=== PATIENT | female | born 1960 | race American Indian/Alaskan Native ===

== ENCOUNTER 2016-11-10 10:43 | Emergency (ER) | payer OTHER, MEDICARE ==
[2016-11-10 11:33] VITALS: BP 153/72
== END 2016-11-10 12:25 | disposition left against medical advice (07) ==
LOC: ED 10:43
DX: Z04.1 Encounter for examination and observation following transport accident (principal); V89.2XXA Person injured in unspecified motor-vehicle accident, traffic, initial encounter; Y93.89 Activity, other specified; Y92.89 Other specified places as the place of occurrence of the external cause; Y99.8 Other external cause status; Z53.21 Procedure and treatment not carried out due to patient leaving prior to being seen by health care provider

== ENCOUNTER 2019-05-13 18:37 | Emergency (ER) | payer MEDICARE ==
[2019-05-13 18:52] VITALS: BP 169/93
[2019-05-13] MEDS ORDERED: FUL-GLO OP STA (18:52)
--- NOTE | 2019-05-13 18:57 | Emergency Department Report ---
Blank Doc - Documentation Documentation: 58 y/o c/o left eye redness and pain to periorbital region . possible early ve sicular rash evolving This initial assessment/diagnostic orders/clinical plan/treatment(s) is/are subject to change based on patient's health status, clinical progression and re- assessment by fellow clinical providers in the ED. Further treatment and workup at subsequent clinical providers discretion. Patient/guardians urged not to elope from the ED as their condition may be serious if not clinically assessed and managed. Initial orders include: visual acuity vlilareal lamp fundus exam
[2019-05-13] MEDS ORDERED: TETRACAINE 0.5% OU ONE (20:23)
[2019-05-13] MEDS ORDERED: TETRACAINE 0.5% ONE (20:24)
--- NOTE | 2019-05-13 20:43 | Emergency Department Report ---
ED Eye Problem HPI - General Chief complaint: Eye Problems Stated complaint: LFT EYE INFECTED/PAIN Time Seen by Provider: 05/13/19 18:50 Source: patient Mode of arrival: Ambulatory Limitations: No Limitations - History of Present Illness Initial comments: 58-year-old female, hx of CVA, with left eye pain, redness, tearing, blurred vision 2 days. Patient reports itching as well, reports she has been rubbing her eye. Patient states this morning when she awoke, her left eye was swollen. States the swelling has resolved since using ice packs on her eye. Patient denies any trauma to the eye. Patient also has associated redness and a few bumps below her eye. MD chief complaint: eye pain, eye redness -: days(s) (2) Location: left eye Eye Symptoms: burning, redness, pain, itching, discharge, blurry vision, photophobia Severity: moderate If Pain, Quality: burning Consistency: constant Associated Symptoms: none - Related Data Home Medications Medication Instructions Recorded Confirmed Last Taken Citalopram [Celexa] 20 mg PO DAILY 09/01/15 04/10/16 04/10/16 20 mg Simvastatin (Nf) [Zocor TAB] 20 mg PO QHS 09/01/15 04/10/16 04/10/16 20 mg Amlodipine Besylate 5 mg PO DAILY 04/10/16 04/10/16 04/10/16 5 mg Atenolol/Chlorthalidone 1 tab PO DAILY 04/10/16 04/10/16 04/10/16 [Atenolol-Chlorthalidone 50-25] 1 tab Lisinopril [Zestril] 40 mg PO DAILY 04/10/16 04/10/16 04/10/16 40 mg Meloxicam 7.5 mg PO BID 04/10/16 04/10/16 04/10/16 7.5mg metroNIDAZOLE 500 mg PO BID 04/10/16 04/10/16 04/10/16 500 mg Previous Rx's Medication Instructions Recorded Last Taken Type Erythromycin [Erythromycin Ophth 10 applic OS 6XD 7 Days #1 tube 05/13/19 Unknown Rx Oint] Valacyclovir HCl [Valtrex] 1,000 mg PO Q8HR 7 Days #21 tablet 05/13/19 Unknown Rx Allergies Allergy/AdvReac Type Severity Reaction Status Date / Time No Known Allergies Allergy Verified 04/10/16 06:13 ED Review of Systems ROS: Stated complaint: LFT EYE INFECTED/PAIN Other details as noted in HPI Comment: All other systems reviewed and negative Constitutional: denies: chills, fever Eyes: eye pain, eye discharge, vision change ED Past Medical Hx - Past Medical History Previous Medical History?: Yes Hx Hypertension: Yes Hx CVA: Yes (slurred speech and right sided deficit.) Hx Diabetes: Yes (diet controlled) - Surgical History Past Surgical History?: No - Social History Smoking Status: Current Every Day Smoker Substance Use Type: None - Medications Home Medications: Home Medications Medication Instructions Recorded Confirmed Last Taken Type Citalopram [Celexa] 20 mg PO DAILY 09/01/15 04/10/16 04/10/16 History 20 mg Simvastatin (Nf) [Zocor TAB] 20 mg PO QHS 09/01/15 04/10/16 04/10/16 History 20 mg Amlodipine Besylate 5 mg PO DAILY 04/10/16 04/10/16 04/10/16 History 5 mg Atenolol/Chlorthalidone 1 tab PO DAILY 04/10/16 04/10/16 04/10/16 History [Atenolol-Chlorthalidone 50-25] 1 tab Lisinopril [Zestril] 40 mg PO DAILY 04/10/16 04/10/16 04/10/16 History 40 mg Meloxicam 7.5 mg PO BID 04/10/16 04/10/16 04/10/16 History 7.5mg metroNIDAZOLE 500 mg PO BID 04/10/16 04/10/16 04/10/16 History 500 mg Erythromycin [Erythromycin Ophth 10 applic OS 6XD 7 Days #1 tube 05/13/19 Unknown Rx Oint] Valacyclovir HCl [Valtrex] 1,000 mg PO Q8HR 7 Days #21 tablet 05/13/19 Unknown Rx ED Physical Exam - General Limitations: No Limitations General appearance: alert, in no apparent distress - Head Head exam: Present: atraumatic, normocephalic - Eye Eye exam: Present: PERRL, EOMI, conjunctival injection (left eye), other (erythema and a few papular lesions inferior to left eye; no skin changes on forehead or lateral to the eye; no ulcerations or dendritic lesions on Hernandez lamp exam). Absent: periorbital swelling Pupils: Present: normal accommodation - ENT ENT exam: Present: mucous membranes moist - Neck Neck exam: Present: normal inspection - Respiratory Respiratory exam: Present: normal lung sounds bilaterally. Absent: respiratory distress - Cardiovascular Cardiovascular Exam: Present: regular rate, normal rhythm - GI/Abdominal GI/Abdominal exam: Absent: distended - Extremities Exam Extremities exam: Present: normal inspection - Neurological Exam Neurological exam: Present: alert, oriented X3 - Psychiatric Psychiatric exam: Present: normal affect, normal mood - Skin Skin exam: Present: warm, dry, intact ED Course Vital Signs 05/13/19 18:48 Temperature 98.2 F Pulse Rate 70 Respiratory 18 Rate Blood Pressure 169/93 O2 Sat by Pulse 97 Oximetry ED Medical Decision Making - Medical Decision Making Possibly very early shingles. Pt given valtrex. Advised ophthamology f/u. - Differential Diagnosis conjunctivitis, herpes zoster ophthalmicus Critical care attestation.: If time is entered above; I have spent that time in minutes in the direct care of this critically ill patient, excluding procedure time. ED Disposition Clinical Impression: Conjunctivitis, Herpes zoster Disposition: DC-01 TO HOME OR SELFCARE Is pt being admited?: No Condition: Stable Instructions: Conjunctivitis (ED), Herpes Zoster (ED) Prescriptions: Erythromycin [Erythromycin Ophth Oint] 10 applic OS 6XD 7 Days #1 tube Valacyclovir HCl [Valtrex] 1,000 mg PO Q8HR 7 Days #21 tablet Referrals: PRIMARY CAREMD [Primary Care Provider] - 3-5 Days TREE LUJAN MD [Staff Physician] - [place] Time of Disposition: 20:50
== END 2019-05-13 20:57 | disposition home or self-care (01) ==
LOC: ED 18:37
DX: H10.32 Unspecified acute conjunctivitis, left eye (principal); B02.9 Zoster without complications; I10 Essential (primary) hypertension; E11.9 Type 2 diabetes mellitus without complications; F17.200 Nicotine dependence, unspecified, uncomplicated; Z86.73 Personal history of transient ischemic attack (TIA), and cerebral infarction without residual deficits; Z79.899 Other long term (current) drug therapy
CPT/HCPCS: 99283

== ENCOUNTER 2021-04-23 01:34 | Inpatient (IN) | payer MEDICARE ==
--- NOTE | 2021-04-23 02:06 | Emergency Department Report ---
ED Chest Pain HPI - General Chief Complaint: Dyspnea/Respdistress Stated Complaint: DIFFICULTY BREATHING Time Seen by Provider: 04/23/21 01:53 Source: EMS Mode of arrival: Stretcher Limitations: No Limitations - History of Present Illness Initial Comments: 60-year-old -[place] female presents to the emergency department from home with complaint of a 1 day history of generalized chest discomfort, shortness of breath, wheezing. Patient received a albuterol breathing treatment and a shot of Solu-Medrol in route with some improvement in the shortness of breath, but no improvement in the chest discomfort. Currently she says it is 6 out of 10 in intensity. She has a past medical history of hypertension and previous CVA with some residual right-sided weakness and difficulty with speech. No recent travel or sick contacts at home. She is vaccinated against COVID-19. The patient is a tobacco smoker but denies any illicit drug use. - Related Data Home Medications Medication Instructions Recorded Confirmed Last Taken Citalopram [Celexa] 20 mg PO DAILY 09/01/15 04/10/16 04/10/16 20 mg Simvastatin (Nf) [Zocor TAB] 20 mg PO QHS 09/01/15 04/10/16 04/10/16 20 mg Amlodipine Besylate 5 mg PO DAILY 04/10/16 04/10/16 04/10/16 5 mg Atenolol/Chlorthalidone 1 tab PO DAILY 04/10/16 04/10/16 04/10/16 [Atenolol-Chlorthalidone 50-25] 1 tab Lisinopril [Zestril] 40 mg PO DAILY 04/10/16 04/10/16 04/10/16 40 mg Meloxicam 7.5 mg PO BID 04/10/16 04/10/16 04/10/16 7.5mg metroNIDAZOLE 500 mg PO BID 04/10/16 04/10/16 04/10/16 500 mg Previous Rx's Medication Instructions Recorded Last Taken Type Erythromycin [Erythromycin Ophth 10 applic OS 6XD 7 Days #1 tube 05/13/19 Unknown Rx Oint] Valacyclovir HCl [Valtrex] 1,000 mg PO Q8HR 7 Days #21 tablet 05/13/19 Unknown Rx Allergies Allergy/AdvReac Type Severity Reaction Status Date / Time No Known Allergies Allergy Verified 04/23/21 01:39 Heart Score - HEART Score History: Slightly suspicious EKG: Non-specific Age: 45-65 Risk factors: 1-2 risk factors Troponin: < normal limit HEART Score: 3 - EKG Read Time Time EKG Completed: 05:54 EKG Read Time: 05:54 - Critical Actions Critical Actions: 0-3 pts:0.9-1.7%risk of adverse cardiac event.Candidate for discharge ED Review of Systems ROS: Stated complaint: DIFFICULTY BREATHING Other details as noted in HPI Comment: All other systems reviewed and negative Constitutional: denies: chills, fever Eyes: denies: eye pain, vision change ENT: denies: ear pain, throat pain Respiratory: shortness of breath, wheezing Cardiovascular: chest pain. denies: edema Gastrointestinal: denies: abdominal pain, vomiting Genitourinary: denies: dysuria, discharge Musculoskeletal: denies: back pain, arthralgia Skin: denies: rash, lesions Neurological: denies: headache, weakness ED Past Medical Hx - Past Medical History Hx Hypertension: Yes Hx CVA: Yes (slurred speech and right sided deficit.) Hx Diabetes: Yes (diet controlled) - Social History Smoking Status: Current Every Day Smoker Substance Use Type: None - Medications Home Medications: Home Medications Medication Instructions Recorded Confirmed Last Taken Type Citalopram [Celexa] 20 mg PO DAILY 09/01/15 04/10/16 04/10/16 History 20 mg Simvastatin (Nf) [Zocor TAB] 20 mg PO QHS 09/01/15 04/10/16 04/10/16 History 20 mg Amlodipine Besylate 5 mg PO DAILY 04/10/16 04/10/16 04/10/16 History 5 mg Atenolol/Chlorthalidone 1 tab PO DAILY 04/10/16 04/10/16 04/10/16 History [Atenolol-Chlorthalidone 50-25] 1 tab Lisinopril [Zestril] 40 mg PO DAILY 04/10/16 04/10/16 04/10/16 History 40 mg Meloxicam 7.5 mg PO BID 04/10/16 04/10/16 04/10/16 History 7.5mg metroNIDAZOLE 500 mg PO BID 04/10/16 04/10/16 04/10/16 History 500 mg Erythromycin [Erythromycin Ophth 10 applic OS 6XD 7 Days #1 tube 05/13/19 Unknown Rx Oint] Valacyclovir HCl [Valtrex] 1,000 mg PO Q8HR 7 Days #21 tablet 05/13/19 Unknown Rx ED Physical Exam - General Limitations: No Limitations ED Course Vital Signs 04/23/21 04/23/21 01:40 05:29 Temperature 98.6 F Pulse Rate 94 H 78 Respiratory 18 Rate Blood Pressure 147/89 Blood Pressure 170/120 [Left] O2 Sat by Pulse 94 Oximetry ED Medical Decision Making - Lab Data Result diagrams: 04/23/21 02:36 04/23/21 02:36 Lab Results 04/23/21 04/23/21 04/23/21 Range/Units 02:36 02:36 02:36 WBC 5.8 (4.5-11.0) K/mm3 RBC 4.54 (3.65-5.03) M/mm3 Hgb 13.0 (10.1-14.3) gm/dl Hct 39.2 (30.3-42.9) % MCV 86 (79-97) fl MCH 29 (28-32) pg MCHC 33 (30-34) % RDW 14.4 (13.2-15.2) % Plt Count 167 (140-440) K/mm3 Lymph % (Auto) 19.8 (13.4-35.0) % [place] % (Auto) 7.9 H (0.0-7.3) % Eos % (Auto) 1.1 (0.0-4.3) % Baso % (Auto) 0.4 (0.0-1.8) % Lymph # (Auto) 1.1 L (1.2-5.4) K/mm3 [place] # (Auto) 0.5 (0.0-0.8) K/mm3 Eos # (Auto) 0.1 (0.0-0.4) K/mm3 Baso # (Auto) 0.0 (0.0-0.1) K/mm3 Seg Neutrophils % 70.8 H (40.0-70.0) % Seg Neutrophils # 4.1 (1.8-7.7) K/mm3 D-Dimer 536.21 H (0-234) ng/mlDDU Sodium 143 (137-145) mmol/L Potassium 3.6 (3.6-5.0) mmol/L Chloride 106.5 (98-107) mmol/L Carbon Dioxide 20 L (22-30) mmol/L Anion Gap 20 mmol/L BUN 12 (7-17) mg/dL Creatinine 0.7 (0.6-1.2) mg/dL Estimated GFR > 60 ml/min BUN/Creatinine Ratio 17 % Glucose 168 H (65-100) mg/dL Calcium 9.8 (8.4-10.2) mg/dL Troponin T < 0.010 (0.00-0.029) ng/mL NT-Pro-B Natriuret Pep (0-900) pg/mL 04/23/21 Range/Units 02:36 WBC (4.5-11.0) K/mm3 RBC (3.65-5.03) M/mm3 Hgb (10.1-14.3) gm/dl Hct (30.3-42.9) % MCV (79-97) fl MCH (28-32) pg MCHC (30-34) % RDW (13.2-15.2) % Plt Count (140-440) K/mm3 Lymph % (Auto) (13.4-35.0) % [place] % (Auto) (0.0-7.3) % Eos % (Auto) (0.0-4.3) % Baso % (Auto) (0.0-1.8) % Lymph # (Auto) (1.2-5.4) K/mm3 [place] # (Auto) (0.0-0.8) K/mm3 Eos # (Auto) (0.0-0.4) K/mm3 Baso # (Auto) (0.0-0.1) K/mm3 Seg Neutrophils % (40.0-70.0) % Seg Neutrophils # (1.8-7.7) K/mm3 D-Dimer (0-234) ng/mlDDU Sodium (137-145) mmol/L Potassium (3.6-5.0) mmol/L Chloride (98-107) mmol/L Carbon Dioxide (22-30) mmol/L Anion Gap mmol/L BUN (7-17) mg/dL Creatinine (0.6-1.2) mg/dL Estimated GFR ml/min BUN/Creatinine Ratio % Glucose (65-100) mg/dL Calcium (8.4-10.2) mg/dL Troponin T (0.00-0.029) ng/mL NT-Pro-B Natriuret Pep 4015 H (0-900) pg/mL - EKG Data -: EKG Interpreted by Me EKG shows normal: sinus rhythm, axis, intervals, QRS complexes (LVH), ST-T waves (Lateral T wave inversion) Rate: normal - EKG Data Interpretation: unchanged when compared t (04/11/16) - Radiology Data Radiology results: report reviewed CHEST 1 VIEW INDICATION / CLINICAL INFORMATION: CP, SOB. FINDINGS: SUPPORT DEVICES: None. HEART / MEDIASTINUM: No significant abnormality. LUNGS / PLEURA: Mild interstitial edema. Tiny pleural effusions. CTA CHEST WITH IV CONTRAST INDICATION: Pt complains of chest pain with dyspnea, elevated D-dimer. TECHNIQUE: Axial CT images were obtained through the chest after injection of 100 mL Omnipaque 300 IV contrast. 3 plane MIP reconstructions were produced. All CT scans at this location are performed using CT dose reduction for ALARA by means of automated exposure control. COMPARISON: None available. FINDINGS: PULMONARY ARTERIES: No pulmonary emboli. AORTA AND ARTERIES: No acute abnormality. MEDIASTINUM: Mild peribronchial thickening identified along both sunil. No mediastinal adenopathy. Heart size is borderline enlarged. LUNGS: Increased interstitial prominence with some ill-defined grou ndglass densities within the right middle lobe and both upper lobes. ADDITIONAL FINDINGS: None. UPPER ABDOMEN: No acute findings. BONES: No significant osseous abnormality. IMPRESSION: 1. No CT evidence for pulmonary embolism. 2. Increased interstitial prominence with patchy groundglass densities and perihilar fullness suggestive of early interstitial edema - Medical Decision Making This patient presents to the emergency department with a complaint of shortness of breath, generalized chest discomfort and apparently some wheezing. I have some mildly coarse breath sounds, but otherwise the patient does not appear in any respiratory or acute distress. Chest x-ray shows some mild pleural effusions and some mild interstitial edema. No pneumonia, pneumothorax, widened mediastinum. EKG did not have any morphology consistent with ST elevation myocardial infarc tion. Patient's labs are remarkable for an elevated D-dimer level of about 550 and a very elevated proBNP of about 4000. With the shortness of breath, chest discomfort, chest x-ray findings, and demetri vated proBNP, I feel that the patient is exhibiting signs of congestive heart failure. Her cardiac catheterization from 5 years ago showed some slightly decreased ejection fraction, but the patient says that she was never diagnosed with CHF. Therefore this may be new onset CHF. CT angiography of the chest did not show pulmonary embolism, dissection, or any acute process. Patient was given a full dose aspirin and she was given a dose of Lasix to start diuresis. She will be admitted to the hospital for further evaluation and treatment and was accepted for admission by the hospitalist, Dr. Escobar. Critical Care Time: No Critical care attestation.: If time is entered above; I have spent that time in minutes in the direct care of this critically ill patient, excluding procedure time. ED Disposition Clinical Impression: New onset of congestive heart failure, Hypertensive urgency Dyspnea Qualifiers: Dyspnea type: shortness of breath Qualified Code(s): R06.02 - Shortness of breath; R06.00 - Dyspnea, unspecified; R06.01 - Orthopnea Chest pain Qualifiers: Chest pain type: unspecified Qualified Code(s): R07.9 - Chest pain, unspecified Disposition: ADMITTED INPATIENT Is pt being admited?: Yes Condition: Fair Time of Disposition: 05:23
--- NOTE | 2021-04-23 02:59 | XRay Report ---
CHEST 1 VIEW INDICATION / CLINICAL INFORMATION: CP, SOB. FINDINGS: SUPPORT DEVICES: None. HEART / MEDIASTINUM: No significant abnormality. LUNGS / PLEURA: Mild interstitial edema. Tiny pleural effusions. Signer Name: Siddharth Desai MD Signed: 04/23/2021 2:54 AM Workstation Name: [id number]
[2021-04-23 03:21] LABS: Basophils % (Auto) 0.4 % (0.0-1.8); Eosinophils # (Auto) 0.1 K/mm3 (0.0-0.4); Eosinophils % (Auto) 1.1 % (0.0-4.3); Hematocrit 39.2 % (30.3-42.9); Lymphocytes # (Auto) 1.1 K/mm3 (1.2-5.4); Lymphocytes % (Auto) 19.8 % (13.4-35.0); Mean Corpuscular HGB Conc 33 % (30-34); Mean Corpuscular Volume 86 fl (79-97); Monocytes # (Auto) 0.5 K/mm3 (0.0-0.8); Monocytes % (Auto) 7.9 % (0.0-7.3); Platelet Count 167 K/mm3 (140-440); Red Blood Count 4.54 M/mm3 (3.65-5.03); Red Cell Distribution Width 14.4 % (13.2-15.2)
[2021-04-23 03:48] LABS: Blood Urea Nitrogen 12 mg/dL (7-17); Calcium 9.8 mg/dL (8.4-10.2); Hemolysis Index 15
[2021-04-23 03:57] LABS: BUN/Creatinine Ratio 17
[2021-04-23] MEDS ORDERED: FUROSEMIDE 20 MG/2 ML INJ IV ONE (03:58)
[2021-04-23] MEDS ORDERED: ASPIRIN 81 MG TAB CHEW PO ONE (04:25)
[2021-04-23] MEDS ORDERED: METOPROLOL TARTRATE 5 MG/5 ML INJ IV ONE (05:19)
[2021-04-23] MEDS ORDERED: DEXTROSE 50% IN WATER (25GM) 50 ML SYRINGE IV PRN (05:32)
[2021-04-23] MEDS ORDERED: ACETAMINOPHEN 325 MG TAB PO PRN (05:32)
[2021-04-23] MEDS ORDERED: MORPHINE 2 MG/1 ML INJ IV PRN (05:32)
[2021-04-23] MEDS ORDERED: traMADol 50 MG TAB PO PRN (05:32)
[2021-04-23] MEDS ORDERED: NITROGLYCERIN 0.4 MG TAB SUBL SL PRN (05:32)
--- NOTE | 2021-04-23 05:46 | Cat Scan Report ---
CTA CHEST WITH IV CONTRAST INDICATION: Pt complains of chest pain with dyspnea, elevated D-dimer. TECHNIQUE: Axial CT images were obtained through the chest after injection of 100 mL Omnipaque 300 IV contrast. 3 plane MIP reconstructions were produced. All CT scans at this location are performed using CT dose reduction for ALARA by means of automated exposure control. COMPARISON: None available. FINDINGS: PULMONARY ARTERIES: No pulmonary emboli. AORTA AND ARTERIES: No acute abnormality. MEDIASTINUM: Mild peribronchial thickening identified along both sunil. No mediastinal adenopathy. Hea rt size is borderline enlarged. LUNGS: Increased interstitial prominence with some ill-defined groundglass densities within the right middle lobe and both upper lobes. ADDITIONAL FINDINGS: None. UPPER ABDOMEN: No acute findings. BONES: No significant osseous abnormality. IMPRESSION: 1. No CT evidence for pulmonary embolism. 2. Increased interstitial prominence with patchy groundglass densities and perihilar fullness suggest liz of early interstitial edema Signer Name: Siddharth Desai MD Signed: 04/23/2021 5:42 AM Workstation Name: [id number]
--- NOTE | 2021-04-23 05:48 | History and Physical Report ---
History of Present Illness Date of examination: 04/23/21 Date of admission: 04/23/21 Chief complaint: Chest pain Dyspnea History of present illness: 60 years old female with past medical history of CVA hypertension and controlled diabetes was brought to the emergency room because of generalized chest discomfort shortness of breath and wheezing for last 1 day Patient received a albuterol breathing treatment and a shot of Solu-Medrol in route with some improvement in the shortness of breath, but no improvement in the chest discomfort. Currently chest discomfort is 6 out of 10 in intensity. No recent travel or sick contacts at home. She is vaccinated against COVID- 19. The patient is a tobacco smoker but denies any illicit drug use. In the ER patient blood pressure is 170/120, also patient proBNP is 4015, troponin is 0.010. Chest x-ray shows mild CHF. Patient also has elevated D- dimer of 536.1 patient had a CTA of the chest result is pending. We are going to admit the patient with CHF exacerbation chest pain and hypertensive urgency Med rec is done. Past History Past Medical History: diabetes, hyperthyroidism, stroke Medications and Allergies Allergies Allergy/AdvReac Type Severity Reaction Status Date / Time No Known Allergies Allergy Verified 04/23/21 01:39 Home Medications Medication Instructions Recorded Confirmed Last Taken Type Citalopram [Celexa] 20 mg PO DAILY 09/01/15 04/10/16 04/10/16 History 20 mg Simvastatin (Nf) [Zocor TAB] 20 mg PO QHS 09/01/15 04/10/16 04/10/16 History 20 mg Amlodipine Besylate 5 mg PO DAILY 04/10/16 04/10/16 04/10/16 History 5 mg Atenolol/Chlorthalidone 1 tab PO DAILY 04/10/16 04/10/16 04/10/16 History [Atenolol-Chlorthalidone 50-25] 1 tab Lisinopril [Zestril] 40 mg PO DAILY 04/10/16 04/10/16 04/10/16 History 40 mg Meloxicam 7.5 mg PO BID 04/10/16 04/10/16 04/10/16 History 7.5mg metroNIDAZOLE 500 mg PO BID 04/10/16 04/10/16 04/10/16 History 500 mg Erythromycin [Erythromycin Ophth 10 applic OS 6XD 7 Days #1 tube 05/13/19 Unknown Rx Oint] Valacyclovir HCl [Valtrex] 1,000 mg PO Q8HR 7 Days #21 tablet 05/13/19 Unknown Rx Active Meds: Active Medications Acetaminophen (Acetaminophen 325 Mg Tab) 650 mg PO Q6H PRN PRN Reason: Pain, Mild (1-3) Amlodipine Besylate (Amlodipine 5 Mg Tab) 5 mg PO DAILY [facility] Aspirin (Aspirin 81 Mg Tab Chew) 81 mg PO QDAY [facility] Atorvastatin Calcium (Atorvastatin 40 Mg Tab) 40 mg PO QHS [facility] Citalopram Hydrobromide (Citalopram 20 Mg Tab) 20 mg PO DAILY [facility] Dextrose (Dextrose 50% In Water (25gm) 50 Ml Syringe) 50 ml IV Q30MIN PRN; Protocol PRN Reason: Hypoglycemia Erythromycin (Erythromycin 5 Mg/1 Gm Ophth Oint) 10 applic OS 6XD [facility] Furosemide (Furosemide 40 Mg/4 Ml Inj) 40 mg IV BID@0600,1800 [facility] Heparin Sodium (Porcine) (Heparin 5,000 Unit/1 Ml Vial) 5,000 unit SUB-Q Q8HR [facility] Insulin Human Lispro (Insulin Lispro 100 Unit/Ml) 0 unit SUB-Q ACHS [facility]; Protocol Lisinopril (Lisinopril 40 Mg Tab) 40 mg PO DAILY [facility] Meloxicam (Meloxicam 7.5 Mg Tab) 7.5 mg PO BID [facility] Miscellaneous Medication (Atenolol/Chlorthalidone [Atenolol-Chlorthalidone 50- 25]) 1 tab PO DAILY [facility] Miscellaneous Medication (Simvastatin (Nf)) 20 mg PO QHS [facility] Miscellaneous Medication (Valacyclovir Hcl [Valtrex]) 1,000 mg PO Q8HR [facility] Morphine Sulfate (Morphine 4 Mg/1 Ml Inj) 2 mg IV Q5MIN PRN PRN Reason: Chest Pain unrelieved by NTG Nitroglycerin (Nitroglycerin 0.4 Mg Tab Subl) 0.4 mg SL Q5M PRN PRN Reason: Chest Pain Pantoprazole Sodium (Pantoprazole 40 Mg Tab) 40 mg PO QDAY [facility] Sodium Chloride (Sodium Chloride 0.9% 10 Ml Flush Syringe) 10 ml IV PRN PRN PRN Reason: LINE FLUSH Tramadol HCl (Tramadol 50 Mg Tab) 50 mg PO Q6H PRN PRN Reason: Pain, Moderate (4-6) Review of Systems All systems: negative Cardiovascular: chest pain, edema, shortness of breath, dyspnea on exertion Respiratory: shortness of breath, dyspnea on exertion Exam - Constitutional Vitals: Temp Pulse Resp BP Pulse Ox 98.6 F 78 18 147/89 94 04/23/21 01:40 04/23/21 05:29 04/23/21 01:40 04/23/21 05:29 04/23/21 01:40 General appearance: Present: no acute distress, well-nourished - EENT Eyes: Present: PERRL ENT: hearing intact, clear oral mucosa - Neck Neck: Present: supple, normal ROM - Respiratory Respiratory effort: normal Respiratory: bilateral: diminished - Cardiovascular Heart Sounds: Present: S1 & S2. Absent: rub, click - Extremities Extremities: pulses symmetrical Extremity abnormal: edema Peripheral Pulses: within normal limits - Abdominal General gastrointestinal: Present: soft, non-tender, non-distended, normal bowel sounds Female genitourinary: Present: normal - Integumentary Integumentary: Present: clear, warm, dry - Musculoskeletal Musculoskeletal: gait normal, strength equal bilaterally - Psychiatric Psychiatric: appropriate mood/affect, intact judgment & insight - Neurologic Neurologic: CNII-XII intact, moves all extremities HEART Score - HEART Score Age: 45-65 Risk factors: 1-2 risk factors Troponin: Troponin T < 0.010 ng/mL (0.00-0.029) 04/23/21 02:36 Troponin: < normal limit Results - Labs CBC & Chem 7: 04/23/21 02:36 04/23/21 02:36 Labs: Laboratory Last Values WBC 5.8 K/mm3 (4.5-11.0) 04/23/21 02:36 RBC 4.54 M/mm3 (3.65-5.03) 04/23/21 02:36 Hgb 13.0 gm/dl (10.1-14.3) 04/23/21 02:36 Hct 39.2 % (30.3-42.9) 04/23/21 02:36 MCV 86 fl (79-97) 04/23/21 02:36 MCH 29 pg (28-32) 04/23/21 02:36 MCHC 33 % (30-34) 04/23/21 02:36 RDW 14.4 % (13.2-15.2) 04/23/21 02:36 Plt Count 167 K/mm3 (140-440) 04/23/21 02:36 Lymph % (Auto) 19.8 % (13.4-35.0) 04/23/21 02:36 Payne % (Auto) 7.9 % (0.0-7.3) H 04/23/21 02:36 Eos % (Auto) 1.1 % (0.0-4.3) 04/23/21 02:36 Baso % (Auto) 0.4 % (0.0-1.8) 04/23/21 02:36 Lymph # (Auto) 1.1 K/mm3 (1.2-5.4) L 04/23/21 02:36 Payne # (Auto) 0.5 K/mm3 (0.0-0.8) 04/23/21 02:36 Eos # (Auto) 0.1 K/mm3 (0.0-0.4) 04/23/21 02:36 Baso # (Auto) 0.0 K/mm3 (0.0-0.1) 04/23/21 02:36 Seg Neutrophils % 70.8 % (40.0-70.0) H 04/23/21 02:36 Seg Neutrophils # 4.1 K/mm3 (1.8-7.7) 04/23/21 02:36 D-Dimer 536.21 ng/mlDDU (0-234) H 04/23/21 02:36 Sodium 143 mmol/L (137-145) 04/23/21 02:36 Potassium 3.6 mmol/L (3.6-5.0) 04/23/21 02:36 Chloride 106.5 mmol/L (98-107) 04/23/21 02:36 Carbon Dioxide 20 mmol/L (22-30) L 04/23/21 02:36 Anion Gap 20 mmol/L 04/23/21 02:36 BUN 12 mg/dL (7-17) 04/23/21 02:36 Creatinine 0.7 mg/dL (0.6-1.2) 04/23/21 02:36 Estimated GFR > 60 ml/min 04/23/21 02:36 BUN/Creatinine Ratio 17 % 04/23/21 02:36 Glucose 168 mg/dL (65-100) H 04/23/21 02:36 Calcium 9.8 mg/dL (8.4-10.2) 04/23/21 02:36 Troponin T < 0.010 ng/mL (0.00-0.029) 04/23/21 02:36 NT-Pro-B Natriuret Pep 4015 pg/mL (0-900) H 04/23/21 02:36 - Imaging and Cardiology Chest x-ray: report reviewed Assessment and Plan VTE prophylaxis?: Chemical Plan of care discussed with patient/family: Yes - Patient Problems (1) New onset of congestive heart failure Current Visit: Yes Status: Acute Plan to address problem: Admit the patient patient to the medical floor. Diet diet. Fluid restriction input output. Lasix 40 mg IV every 12 hours. Echocardiogram. Cardiology consult (2) Acute coronary syndrome Current Visit: Yes Status: Acute Plan to address problem: Aspirin 81 mg p.o. daily. Lipitor 40 mg p.o. daily. Nitroglycerin as needed. We do the serial cardiac enzyme. We also do echocardiogram and consult cardiology for evaluation (3) Hypertensive urgency Current Visit: Yes Status: Acute Plan to address problem: Hydralazine 10 mg IV every 6 hours as needed. Norvasc 5 mg p.o. daily. We will monitor the blood pressure closely (4) DMII (diabetes mellitus, type 2) Current Visit: No Status: Acute Qualifiers: Diabetes mellitus complication status: with circulatory complication Diabetes mellitus complication detail: with other circulatory complications Qualified Code(s): E11.59 - Type 2 diabetes mellitus with other circulatory complications Plan to address problem: We will put the patient on Humalog sliding scale with Accu-Chek ACH and at bedtime low-dose coverage. Diabetic education (5) History of CVA with residual deficit Current Visit: No Status: Acute Plan to address problem: Stable. We will continue aspirin 81 mg p.o. daily Lipitor 40 mg p.o. nightly. Outpatient follow-up with neurology (6) Dyspnea Current Visit: Yes Status: Acute Plan to address problem: Oxygen per nasal cannula 3 L/min DuoNeb by nebulizer every 4 hours . Albuterol via nebulizer every 4 hours as needed (7) DVT prophylaxis Current Visit: Yes Status: Acute Plan to address problem: Heparin 5000 units subcu every 8 hours for DVT prophylaxis. Protonix 40 mg p.o. daily for GI prophylaxis. Patient is a full code
[2021-04-23] MEDS ORDERED: hydrALAZINE 20 MG/1 ML INJ IV PRN (05:54)
[2021-04-23] MEDS ORDERED: ERYTHROMYCIN 5 MG/1 GM OPHTH OINT OS SCH (06:00)
[2021-04-23] MEDS ORDERED: NON-FORMULARY EACH (Valacyclovir Hcl [Valtrex] 1,000 MG Tablet) PO SCH (06:00)
[2021-04-23 08:47] LABS: Basophils % (Auto) 0.3 % (0.0-1.8); Hematocrit 40.7 % (30.3-42.9); Hemoglobin 13.4 gm/dl (10.1-14.3); Lymphocytes # (Auto) 0.5 K/mm3 (1.2-5.4); Lymphocytes % (Auto) 11.5 % (13.4-35.0); Mean Corpuscular HGB Conc 33 % (30-34); Mean Corpuscular Volume 88 fl (79-97); Monocytes # (Auto) 0.1 K/mm3 (0.0-0.8); Monocytes % (Auto) 2.1 % (0.0-7.3); Platelet Count 168 K/mm3 (140-440); Red Blood Count 4.65 M/mm3 (3.65-5.03); Red Cell Distribution Width 14.7 % (13.2-15.2)
[2021-04-23] MEDS: HEPARIN 5,000 UNIT/1 ML VIAL SUB-Q SCH ×3 (08:49→22:44)
[2021-04-23] MEDS: INSULIN LISPRO 100 UNIT/ML SUB-Q SCH ×4 (08:49→22:54)
[2021-04-23] MEDS: FUROSEMIDE 40 MG/4 ML INJ IV SCH ×2 (08:49→18:41)
[2021-04-23 09:10] LABS: BUN/Creatinine Ratio 15; Blood Urea Nitrogen 12 mg/dL (7-17); Calcium 9.9 mg/dL (8.4-10.2); Hemolysis Index 10
[2021-04-23] MEDS ORDERED: ROCURONIUM 50 MG/5 ML INJ IV ONE (09:55)
--- NOTE | 2021-04-23 10:08 | Consultation ---
History of Present Illness Consult date: 04/23/21 Consult reason: congestive heart failure History of present illness: This is a 60-year old F with a cardiac history of nonischemic cardiomyopathy by cardiac cath in 2016 and again in 2019 that showed normal coronary arteries but a decrease ejection fraction at 35%. A follow-up echo in 2019 showed persistent dilated cardiomyopathy, ejection fraction 25-30% followed with placement of a cardiac defibrillator (Biotronik) for primary prevention. The patient receives her usual cardiac care at [facility] where routine device checks reports a normal functioning device. Co-morbidities includes prior CVA with left sided residual, hypertension, and chronic tobacco abuse. Patient presents to the emergency department with 1 day of shortness of breath, cough, and chest pain. She was also found with uncontrolled hypertension, blood pressure 170/120 on initial workup. The patient denies palpitations, and denies ICD discharge. There is no lower extremity edema. Chest x-ray reports mild interstitial edema. Further workup with a chest CTA was negative for pulmonary embolism. 12 lead ECG is sinus rhythm, LVH with repolarization abnormality. Past History Past Medical History: diabetes, heart failure, hyperthyroidism, hypertension, hyperlipidemia, stroke Past Surgical History: Other (AICD) Social history: smoking Medications and Allergies Allergies Allergy/AdvReac Type Severity Reaction Status Date / Time No Known Allergies Allergy Verified 04/23/21 01:39 Home Medications Medication Instructions Recorded Confirmed Last Taken Type Citalopram [Celexa] 20 mg PO DAILY 09/01/15 04/10/16 04/10/16 History 20 mg Simvastatin (Nf) [Zocor TAB] 20 mg PO QHS 09/01/15 04/10/16 04/10/16 History 20 mg Amlodipine Besylate 5 mg PO DAILY 04/10/16 04/10/16 04/10/16 History 5 mg Atenolol/Chlorthalidone 1 tab PO DAILY 04/10/16 04/10/16 04/10/16 History [Atenolol-Chlorthalidone 50-25] 1 tab Lisinopril [Zestril] 40 mg PO DAILY 04/10/16 04/10/16 04/10/16 History 40 mg Meloxicam 7.5 mg PO BID 04/10/16 04/10/16 04/10/16 History 7.5mg metroNIDAZOLE 500 mg PO BID 04/10/16 04/10/16 04/10/16 History 500 mg Erythromycin [Erythromycin Ophth 10 applic OS 6XD 7 Days #1 tube 05/13/19 Unknown Rx Oint] Valacyclovir HCl [Valtrex] 1,000 mg PO Q8HR 7 Days #21 tablet 05/13/19 Unknown Rx Active Meds: Active Medications Acetaminophen (Acetaminophen 325 Mg Tab) 650 mg PO Q6H PRN PRN Reason: Pain, Mild (1-3) Albuterol (Albuterol 2.5 Mg/3 Ml Nebu) 2.5 mg IH Q4HRT [facility] Amlodipine Besylate (Amlodipine 5 Mg Tab) 5 mg PO DAILY [facility] Aspirin (Aspirin 81 Mg Tab Chew) 81 mg PO QDAY [facility] Atenolol (Atenolol 50 Mg Tab) 50 mg PO QDAY [facility] Atorvastatin Calcium (Atorvastatin 40 Mg Tab) 40 mg PO QHS [facility] Chlorthalidone (Chlorthalidone 25 Mg Tab) 25 mg PO QDAY [facility] Citalopram Hydrobromide (Citalopram 20 Mg Tab) 20 mg PO DAILY [facility] Dextrose (Dextrose 50% In Water (25gm) 50 Ml Syringe) 0 ml IV Q30MIN PRN; Protocol PRN Reason: Hypoglycemia Furosemide (Furosemide 40 Mg/4 Ml Inj) 40 mg IV BID@0600,1800 [facility] Last Admin: 04/23/21 08:49 Dose: 40 mg Documented by: Heparin Sodium (Porcine) (Heparin 5,000 Unit/1 Ml Vial) 5,000 unit SUB-Q Q8HR [facility] Last Admin: 04/23/21 08:49 Dose: 5,000 unit Documented by: Hydralazine HCl (Hydralazine 20 Mg/1 Ml Inj) 10 mg IV Q6H PRN PRN Reason: Blood Pressure Insulin Human Lispro (Insulin Lispro 100 Unit/Ml) 0 unit SUB-Q ACHS [facility]; Protocol Last Admin: 04/23/21 08:49 Dose: Not Given Documented by: Lisinopril (Lisinopril 40 Mg Tab) 40 mg PO DAILY [facility] Meloxicam (Meloxicam 7.5 Mg Tab) 7.5 mg PO BID [facility] Morphine Sulfate (Morphine 2 Mg/1 Ml Inj) 2 mg IV Q5MIN PRN PRN Reason: Chest Pain unrelieved by NTG Nitroglycerin (Nitroglycerin 0.4 Mg Tab Subl) 0.4 mg SL Q5M PRN PRN Reason: Chest Pain Pantoprazole Sodium (Pantoprazole 40 Mg Tab) 40 mg PO QDAY [facility] Pravastatin Sodium (Pravastatin 40 Mg Tab) 40 mg PO QHS [facility] Sodium Chloride (Sodium Chloride 0.9% 10 Ml Flush Syringe) 10 ml IV PRN PRN PRN Reason: LINE FLUSH Tramadol HCl (Tramadol 50 Mg Tab) 50 mg PO Q6H PRN PRN Reason: Pain, Moderate (4-6) Review of Systems Cardiovascular: chest pain, shortness of breath, no palpitations, no edema Respiratory: cough Physical Examination Vital Signs Temp Pulse Resp BP Pulse Ox 98.6 F 94 H 18 170/120 94 04/23/21 01:40 04/23/21 01:40 04/23/21 01:40 04/23/21 01:40 04/23/21 01:40 General appearance: no acute distress HEENT: Positive: PERRL Neck: Positive: trachea midline Cardiac: Positive: Reg Rate and Rhythm Lungs: Positive: Decreased Breath Sounds Neuro: Positive: Weakness (left sided residual) Extremities: Absent: edema Results 04/23/21 08:30 04/23/21 08:30 CBC 04/23/21 04/23/21 Range/Units 02:36 08:30 WBC 5.8 4.2 L (4.5-11.0) K/mm3 RBC 4.54 4.65 (3.65-5.03) M/mm3 Hgb 13.0 13.4 (10.1-14.3) gm/dl Hct 39.2 40.7 (30.3-42.9) % Plt Count 167 168 (140-440) K/mm3 Lymph # (Auto) 1.1 L 0.5 L (1.2-5.4) K/mm3 Riley # (Auto) 0.5 0.1 (0.0-0.8) K/mm3 Eos # (Auto) 0.1 0.0 (0.0-0.4) K/mm3 Baso # (Auto) 0.0 0.0 (0.0-0.1) K/mm3 Comprehensive Metabolic Panel 04/23/21 04/23/21 Range/Units 02:36 08:30 Sodium 143 141 (137-145) mmol/L Potassium 3.6 4.0 (3.6-5.0) mmol/L Chloride 106.5 103.5 (98-107) mmol/L Carbon Dioxide 20 L 22 (22-30) mmol/L BUN 12 12 (7-17) mg/dL Creatinine 0.7 0.8 (0.6-1.2) mg/dL Glucose 168 H 194 H (65-100) mg/dL Calcium 9.8 9.9 (8.4-10.2) mg/dL Assessment and Plan Systolic heart failure chest CTA: no PE Hx of Nonischemic CMP LVEF 25-30% by echo at [address] in 2016 & 2019: normal coronaries, EF 35% Hypertension, uncontrolled Prior CVA with left sided residual Presence of AICD (Biotronik) Recommendations: Low sodium diet and fluid restriction. Continue guideline directed medical therapy for nonischemic cardiomyopathy and systolic heart failure.
[2021-04-23] MEDS: MELOXICAM 7.5 MG TAB PO SCH ×2 (11:52→22:44)
[2021-04-23] MEDS: PANTOPRAZOLE 40 MG TAB PO SCH (11:52)
[2021-04-23] MEDS: amLODIPine 5 MG TAB PO SCH (11:52)
[2021-04-23] MEDS: CITALOPRAM 20 MG TAB PO SCH (11:53)
[2021-04-23] MEDS: atenoloL 50 MG TAB PO SCH (11:53)
[2021-04-23] MEDS: CHLORTHALIDONE 25 MG TAB PO SCH (11:53)
[2021-04-23] MEDS: LISINOPRIL 40 MG TAB PO SCH (11:54)
--- NOTE | 2021-04-23 14:59 | Event Note ---
Date: 04/23/21
--- NOTE | 2021-04-23 16:29 | Progress Note ---
Assessment and Plan Assessment and plan: --acute on chronic systolic congestive heart failure Admit the patient patient to the medical floor. Diet diet. Fluid restriction input output. Lasix 40 mg IV every 12 hours. Echocardiogram. Cardiology consult -- Acute coronary syndrome Current Visit: Yes Status: Acute Aspirin 81 mg p.o. daily. Lipitor 40 mg p.o. daily. Nitroglycerin as needed. We do the serial cardiac enzyme. We also do echocardiogram and consult cardiology for evaluation -- Hypertensive urgency Current Visit: Yes Status: Acute Hydralazine 10 mg IV every 6 hours as needed. Norvasc 5 mg p.o. daily. We will monitor the blood pressure closely --DMII (diabetes mellitus, type 2) Current Visit: No Status: Acute We will put the patient on Humalog sliding scale with Accu-Chek ACH and at bedtime low-dose coverage. Diabetic education -- History of CVA with residual deficit Current Visit: No Status: Acute Stable. We will continue aspirin 81 mg p.o. daily Lipitor 40 mg p.o. nightly. Outpatient follow-up with neurology --Morbid obesity; BMI 51.8 Current Visit: No Status: Chronic Patient may need weight reduction when medically stable Dietary modification exercise as tolerated, possible bariatric surgical evaluation as outpatient For weight reduction program when stable -- Dyspnea Current Visit: Yes Status: Acute Oxygen per nasal cannula 3 L/min DuoNeb by nebulizer every 4 hours . Albuterol via nebulizer every 4 hours as needed --DVT prophylaxis Current Visit: Yes Status: Acute Heparin 5000 units subcu every 8 hours for DVT prophylaxis. Protonix 40 mg p.o. daily for GI prophylaxis. Patient is a full code Cardiology evaluation recommendations noted and appreciated Advance care 45 minutes History Interval history: I have seen and examined the patient in the ED awaiting room assignment Patient's chart and medications reviewed Patient was admitted with worsening shortness of breath cough and chest pain Evaluated by cardiology The time of my evaluation patient denies any chest pain shortness of breath significantly improved Hospitalist Physical - Constitutional Vitals: Temp Pulse Resp BP Pulse Ox 98.6 F 78 18 147/89 94 04/23/21 01:40 04/23/21 05:29 04/23/21 01:40 04/23/21 05:29 04/23/21 01:40 General appearance: Present: mild distress, well-nourished, obese - EENT Eyes: Present: PERRL, EOM intact - Neck Neck: Present: supple, normal ROM - Respiratory Respiratory effort: normal Respiratory: bilateral: diminished, rales, negative: rhonchi, wheezing - Cardiovascular Rhythm: regular Heart Sounds: Present: S1 & S2 - Extremities Extremities: no ischemia, No edema - Abdominal General gastrointestinal: soft, non-tender, non-distended, normal bowel sounds - Integumentary Integumentary: Present: clear, warm - Psychiatric Psychiatric: appropriate mood/affect, cooperative - Neurologic Neurologic: CNII-XII intact, moves all extremities HEART Score - HEART Score EKG: Non-specific Age: 45-65 Risk factors: 1-2 risk factors Troponin: Troponin T < 0.010 ng/mL (0.00-0.029) 04/23/21 10:57 Troponin: < normal limit - Critical Actions Critical Actions: 0-3 pts:0.9-1.7%risk of adverse cardiac event.Candidate for discharge Results - Labs CBC & Chem 7: 04/23/21 08:30 04/23/21 08:30 Labs: Laboratory Last Values WBC 4.2 K/mm3 (4.5-11.0) L 04/23/21 08:30 RBC 4.65 M/mm3 (3.65-5.03) 04/23/21 08:30 Hgb 13.4 gm/dl (10.1-14.3) 04/23/21 08:30 Hct 40.7 % (30.3-42.9) 04/23/21 08:30 MCV 88 fl (79-97) 04/23/21 08:30 MCH 29 pg (28-32) 04/23/21 08:30 MCHC 33 % (30-34) 04/23/21 08:30 RDW 14.7 % (13.2-15.2) 04/23/21 08:30 Plt Count 168 K/mm3 (140-440) 04/23/21 08:30 Lymph % (Auto) 11.5 % (13.4-35.0) L 04/23/21 08:30 [place] % (Auto) 2.1 % (0.0-7.3) 04/23/21 08:30 Eos % (Auto) 0.0 % (0.0-4.3) 04/23/21 08:30 Baso % (Auto) 0.3 % (0.0-1.8) 04/23/21 08:30 Lymph # (Auto) 0.5 K/mm3 (1.2-5.4) L 04/23/21 08:30 [place] # (Auto) 0.1 K/mm3 (0.0-0.8) 04/23/21 08:30 Eos # (Auto) 0.0 K/mm3 (0.0-0.4) 04/23/21 08:30 Baso # (Auto) 0.0 K/mm3 (0.0-0.1) 04/23/21 08:30 Seg Neutrophils % 86.1 % (40.0-70.0) H 04/23/21 08:30 Seg Neutrophils # 3.7 K/mm3 (1.8-7.7) 04/23/21 08:30 D-Dimer 536.21 ng/mlDDU (0-234) H 04/23/21 02:36 Sodium 141 mmol/L (137-145) 04/23/21 08:30 Potassium 4.0 mmol/L (3.6-5.0) 04/23/21 08:30 Chloride 103.5 mmol/L (98-107) 04/23/21 08:30 Carbon Dioxide 22 mmol/L (22-30) 04/23/21 08:30 Anion Gap 20 mmol/L 04/23/21 08:30 BUN 12 mg/dL (7-17) 04/23/21 08:30 Creatinine 0.8 mg/dL (0.6-1.2) 04/23/21 08:30 Estimated GFR > 60 ml/min 04/23/21 08:30 BUN/Creatinine Ratio 15 % 04/23/21 08:30 Glucose 194 mg/dL (65-100) H 04/23/21 08:30 POC Glucose 163 mg/dL (70-105) H 04/23/21 08:48 Calcium 9.9 mg/dL (8.4-10.2) 04/23/21 08:30 Troponin T < 0.010 ng/mL (0.00-0.029) 04/23/21 10:57 NT-Pro-B Natriuret Pep 4015 pg/mL (0-900) H 04/23/21 02:36 Active Medications - Current Medications Current Medications: Generic Name Dose Route Start Last Admin Trade Name Freq PRN Reason Stop Dose Admin Acetaminophen 650 mg 04/23/21 05:32 Acetaminophen 325 Mg Tab PO Q6H PRN Pain, Mild (1-3) Albuterol 2.5 mg 04/23/21 08:00 Albuterol 2.5 Mg/3 Ml Nebu IH Q4HRT [facility] Amlodipine Besylate 5 mg 04/23/21 10:00 04/23/21 11:52 Amlodipine 5 Mg Tab PO 5 mg DAILY BECKY Administration Aspirin 81 mg 04/24/21 10:00 Aspirin 81 Mg Tab Chew PO QDAY [facility] Atenolol 50 mg 04/23/21 10:00 04/23/21 11:53 Atenolol 50 Mg Tab PO 50 mg QDAY BECKY Administration Atorvastatin Calcium 40 mg 04/23/21 22:00 Atorvastatin 40 Mg Tab PO QHS [facility] Chlorthalidone 25 mg 04/23/21 10:00 04/23/21 11:53 Chlorthalidone 25 Mg Tab PO 25 mg QDAY [facility] Administration Citalopram Hydrobromide 20 mg 04/23/21 10:00 04/23/21 11:53 Citalopram 20 Mg Tab PO 20 mg DAILY BECKY Administration Dextrose 0 ml 04/23/21 05:32 Dextrose 50% In Water (25gm) 50 Ml Syringe IV Q30MIN PRN Hypoglycemia Protocol Furosemide 40 mg 04/23/21 06:00 04/23/21 08:49 Furosemide 40 Mg/4 Ml Inj IV 40 mg BID@0600,1800 [facility] Administration Heparin Sodium (Porcine) 5,000 unit 04/23/21 06:00 04/23/21 16:23 Heparin 5,000 Unit/1 Ml Vial SUB-Q 5,000 unit Q8HR BECKY Administration Hydralazine HCl 10 mg 04/23/21 05:54 Hydralazine 20 Mg/1 Ml Inj IV Q6H PRN Blood Pressure Insulin Human Lispro 0 unit 04/23/21 07:30 04/23/21 12:27 Insulin Lispro 100 Unit/Ml SUB-Q Not Given ACHS [facility] Protocol Lisinopril 40 mg 04/23/21 10:00 04/23/21 11:54 Lisinopril 40 Mg Tab PO Not Given DAILY BECKY Meloxicam 7.5 mg 04/23/21 10:00 04/23/21 11:52 Meloxicam 7.5 Mg Tab PO 7.5 mg BID BECKY Administration Morphine Sulfate 2 mg 04/23/21 05:32 Morphine 2 Mg/1 Ml Inj IV Q5MIN PRN Chest Pain unrelieved by NTG Nitroglycerin 0.4 mg 04/23/21 05:32 Nitroglycerin 0.4 Mg Tab Subl SL Q5M PRN Chest Pain Pantoprazole Sodium 40 mg 04/23/21 10:00 04/23/21 11:52 Pantoprazole 40 Mg Tab PO 40 mg QDAY BECKY Administration Pravastatin Sodium 40 mg 04/23/21 22:00 Pravastatin 40 Mg Tab PO QHS BECKY Sodium Chloride 10 ml 04/23/21 05:32 Sodium Chloride 0.9% 10 Ml Flush Syringe IV PRN PRN LINE FLUSH Tramadol HCl 50 mg 04/23/21 05:32 Tramadol 50 Mg Tab PO Q6H PRN Pain, Moderate (4-6) Nutrition/Malnutrition Assess - Dietary Evaluation Nutrition/Malnutrition Findings: Nutrition Notes Start: 04/23/21 13:57 Freq: Status: Active Protocol: Document 04/23/21 13:57 BIA (Rec: 04/23/21 14:49 BIA [id number]) Nutrition Notes Need for Assessment generated from: MD Order Initial or Follow up Assessment Current Diagnosis Diabetes,Hypertension,Heart Failure Current Diet Cardiac Diet (since B 04/23). Labs/Tests 04/23: Glu 194.. Pertinent Medications 04/23: Reviewed. Height 5 ft 7 in Weight 150 kg [place] Body Weight (kg) 61.36 BMI 51.7 Weight Status Morbidly Obese Subjective/Other Information MD recommended low sodium diet and fluid restriction, and nutrition education for T2DM & HTN. Percent of energy/protein needs met: Cardiac Diet provides for all energy/protein needs (2230 Kcal/ 85 g) during LOS. Burn Absent Trauma Absent GI Symptoms None Food Allergy No Skin Integrity/Comment Integumentary; clear, warm, dry. Minimum of two criteria No physical signs of malnutrition #1 Nutrition Diagnosis Food and nutrition-related knowledge deficit Etiology Pt apparently neglects cocomitant conditions for long time As Evidenced by Signs and Symptoms Pt presents to ER with CHF and uncontroled HTN, with Hx of T2DM Is patient on ventilator? No Is Patient Ambulatory and/or Out of Bed Yes REE-([place]-St. Jeor-ambulatory/OOB) [ 2746.419 NUTR.MSJOOB] Kcal/Kg value to use for calculation 15 Approximate Energy Requirements Using 2250 kcal/Kg Calculation Used for Recommendations Kcal/kg Additional Notes Protein: 1.0-1.2 g/Kg/day; 61- 73 g/day; 244-292 Kcal/day ( from IBW). Fluids: 1.0 ml/Kcal/day, or as per MD. (look for restrictions) Nutrition Intervention Change Diet Order: Continue prescribed Cardiac Diet. Teaching Recipient Patient Education Handouts Provided AND: Carbohydrate counting for peple with diabetes, Heart- healthy consistent carbohydrate nutrition therapy . NOTE: Pt still on hold for room to be assigned, F/U 04/25. RD phone number provided Yes Goal #1 Provide Pt with educational tools for decision making towards behavioral changes to adhere a healthy lifestyle Goal #2 Cardiac Diet will provide energy/protein needs (2230 Kcal/85 g) during LOS. Goal #3 Acheve and maintain acceptable chemistry lab values during LOS. Follow-Up By: 04/25/21 Additional Comments Continue monitoring acceptance of food, PO 5 intake of meals , and BM.
[2021-04-23] MEDS: ALBUTEROL 2.5 MG/3 ML NEBU IH SCH ×2 (18:41→20:41)
[2021-04-23] MEDS: PRAVASTATIN 40 MG TAB PO SCH (22:46)
[2021-04-24] MEDS: ALBUTEROL 2.5 MG/3 ML NEBU IH SCH (01:53)
[2021-04-24] MEDS ORDERED: ALBUTEROL 2.5 MG/3 ML NEBU IH PRN (01:56)
[2021-04-24] MEDS: HEPARIN 5,000 UNIT/1 ML VIAL SUB-Q SCH ×3 (06:39→22:16)
[2021-04-24] MEDS: FUROSEMIDE 40 MG/4 ML INJ IV SCH ×2 (06:40→17:44)
[2021-04-24] MEDS: INSULIN LISPRO 100 UNIT/ML SUB-Q SCH ×3 (07:30→17:44)
--- NOTE | 2021-04-24 09:31 | Progress Note ---
Assessment and Plan Assessment and plan: --acute on chronic systolic congestive heart failure Continue antifailure medications, diuretics, beta-blockers, SELIN inhibitors Nitrates, input output monitoring, low-sodium diet, fluid restriction Cardiology evaluation noted and appreciated Echo; LV moderately dilated, ejection fraction 20 to 25% Supportive care -- Acute coronary syndrome Current Visit: Yes Status: Acute Continue aspirin , beta-blockers, SELIN inhibitors, nitrates, statin Echocardiogram findings reviewed EF 20 to 25% Cardiology evaluation reviewed -- Hypertensive urgency/present on admission Current Visit: Yes Status: Acute Blood pressures well controlled, continue current antihypertensives As needed hydralazine --DMII (diabetes mellitus, type 2) Current Visit: No Status: Acute Accu-Chek sliding scale coverage ADA diet Long-acting insulin as needed, check A1c -- History of CVA with residual deficit Current Visit: No Status: Acute Continue aspirin and statin PT OT evaluation if needed, supportive care --GERD; Current Visit: No Status: Chronic Protonix 40 mg p.o --Morbid obesity; BMI 51.8 Current Visit: No Status: Chronic Patient may need weight reduction when medically stable Dietary modification exercise as tolerated, possible bariatric surgical evaluation as outpatient For weight reduction program when stable --Full CODE STATUS; --DVT prophylaxis Current Visit: Yes Status: Acute Heparin 5000 units subcu every 8 hours for DVT prophylaxis. Cardiology evaluation recommendations noted and appreciated We will closely monitor the patient and adjust management as needed Possible discharge in 1 to 2 days if stable and cleared by cardiology 04/24/2021; Patient feels slightly better Patient blood pressures are in the lower range Closely monitor and adjust the medications Cardiology recommendations noted and appreciated History Interval history: I have seen and examined the patient at the bedside this morning Patient's chart and medications reviewed Admitted with acute exacerbation of chronic systolic congestive heart failure Patient feels slightly better still has shortness of breath and congestion Denies chest pain Hospitalist Physical - Constitutional Vitals: Temp Pulse Resp BP Pulse Ox 97.5 F L 69 18 135/82 98 04/24/21 04:47 04/24/21 04:47 04/24/21 04:47 04/24/21 04:47 04/24/21 04:47 General appearance: Present: mild distress, well-nourished, obese - EENT Eyes: Present: PERRL, EOM intact - Neck Neck: Present: supple, normal ROM - Respiratory Respiratory effort: normal Respiratory: bilateral: diminished, rhonchi, negative: rales, wheezing - Cardiovascular Rhythm: regular Heart Sounds: Present: S1 & S2 - Extremities Extremities: no ischemia, No edema - Abdominal General gastrointestinal: soft, non-tender, non-distended, normal bowel sounds - Integumentary Integumentary: Present: clear, warm - Psychiatric Psychiatric: appropriate mood/affect, cooperative - Neurologic Neurologic: moves all extremities, other (Residual weakness) HEART Score - HEART Score EKG: Non-specific Age: 45-65 Risk factors: 1-2 risk factors Troponin: Troponin T < 0.010 ng/mL (0.00-0.029) 04/23/21 10:57 Troponin: < normal limit - Critical Actions Critical Actions: 0-3 pts:0.9-1.7%risk of adverse cardiac event.Candidate for discharge Results - Labs CBC & Chem 7: 04/23/21 08:30 04/23/21 08:30 Labs: Laboratory Last Values WBC 4.2 K/mm3 (4.5-11.0) L 04/23/21 08:30 RBC 4.65 M/mm3 (3.65-5.03) 04/23/21 08:30 Hgb 13.4 gm/dl (10.1-14.3) 04/23/21 08:30 Hct 40.7 % (30.3-42.9) 04/23/21 08:30 MCV 88 fl (79-97) 04/23/21 08:30 MCH 29 pg (28-32) 04/23/21 08:30 MCHC 33 % (30-34) 04/23/21 08:30 RDW 14.7 % (13.2-15.2) 04/23/21 08:30 Plt Count 168 K/mm3 (140-440) 04/23/21 08:30 Lymph % (Auto) 11.5 % (13.4-35.0) L 04/23/21 08:30 [place] % (Auto) 2.1 % (0.0-7.3) 04/23/21 08:30 Eos % (Auto) 0.0 % (0.0-4.3) 04/23/21 08:30 Baso % (Auto) 0.3 % (0.0-1.8) 04/23/21 08:30 Lymph # (Auto) 0.5 K/mm3 (1.2-5.4) L 04/23/21 08:30 [place] # (Auto) 0.1 K/mm3 (0.0-0.8) 04/23/21 08:30 Eos # (Auto) 0.0 K/mm3 (0.0-0.4) 04/23/21 08:30 Baso # (Auto) 0.0 K/mm3 (0.0-0.1) 04/23/21 08:30 Seg Neutrophils % 86.1 % (40.0-70.0) H 04/23/21 08:30 Seg Neutrophils # 3.7 K/mm3 (1.8-7.7) 04/23/21 08:30 D-Dimer 536.21 ng/mlDDU (0-234) H 04/23/21 02:36 Sodium 141 mmol/L (137-145) 04/23/21 08:30 Potassium 4.0 mmol/L (3.6-5.0) 04/23/21 08:30 Chloride 103.5 mmol/L (98-107) 04/23/21 08:30 Carbon Dioxide 22 mmol/L (22-30) 04/23/21 08:30 Anion Gap 20 mmol/L 04/23/21 08:30 BUN 12 mg/dL (7-17) 04/23/21 08:30 Creatinine 0.8 mg/dL (0.6-1.2) 04/23/21 08:30 Estimated GFR > 60 ml/min 04/23/21 08:30 BUN/Creatinine Ratio 15 % 04/23/21 08:30 Glucose 194 mg/dL (65-100) H 04/23/21 08:30 POC Glucose 140 mg/dL (70-105) H 04/23/21 22:52 Calcium 9.9 mg/dL (8.4-10.2) 04/23/21 08:30 Troponin T < 0.010 ng/mL (0.00-0.029) 04/23/21 10:57 NT-Pro-B Natriuret Pep 4015 pg/mL (0-900) H 04/23/21 02:36 [place]/IV: Voiding Method Toilet Active Medications - Current Medications Current Medications: Generic Name Dose Route Start Last Admin Trade Name Freq PRN Reason Stop Dose Admin Acetaminophen 650 mg 04/23/21 05:32 Acetaminophen 325 Mg Tab PO Q6H PRN Pain, Mild (1-3) Albuterol 2.5 mg 04/24/21 01:56 Albuterol 2.5 Mg/3 Ml Nebu IH Q4HRT PRN Shortness Of Breath Amlodipine Besylate 5 mg 04/23/21 10:00 04/23/21 11:52 Amlodipine 5 Mg Tab PO 5 mg DAILY BECKY Administration Aspirin 81 mg 04/24/21 10:00 Aspirin 81 Mg Tab Chew PO QDAY BECKY Atenolol 50 mg 04/23/21 10:00 04/23/21 11:53 Atenolol 50 Mg Tab PO 50 mg QDAY BECKY Administration Atorvastatin Calcium 40 mg 04/23/21 22:00 04/23/21 22:46 Atorvastatin 40 Mg Tab PO 40 mg QHS BECKY Administration Chlorthalidone 25 mg 04/23/21 10:00 04/23/21 11:53 Chlorthalidone 25 Mg Tab PO 25 mg QDAY BECKY Administration Citalopram Hydrobromide 20 mg 04/23/21 10:00 04/23/21 11:53 Citalopram 20 Mg Tab PO 20 mg DAILY BECKY Administration Dextrose 0 ml 04/23/21 05:32 Dextrose 50% In Water (25gm) 50 Ml Syringe IV Q30MIN PRN Hypoglycemia Protocol Furosemide 40 mg 04/23/21 06:00 04/24/21 06:40 Furosemide 40 Mg/4 Ml Inj IV 40 mg BID@0600,1800 BECKY Administration Heparin Sodium (Porcine) 5,000 unit 04/23/21 06:00 04/24/21 06:39 Heparin 5,000 Unit/1 Ml Vial SUB-Q 5,000 unit Q8HR BECKY Administration Hydralazine HCl 10 mg 04/23/21 05:54 Hydralazine 20 Mg/1 Ml Inj IV Q6H PRN Blood Pressure Insulin Human Lispro 0 unit 04/23/21 07:30 04/23/21 22:54 Insulin Lispro 100 Unit/Ml SUB-Q Not Given ACHS BECKY Protocol Lisinopril 40 mg 04/23/21 10:00 04/23/21 11:54 Lisinopril 40 Mg Tab PO Not Given DAILY BECKY Meloxicam 7.5 mg 04/23/21 10:00 04/23/21 22:44 Meloxicam 7.5 Mg Tab PO 7.5 mg BID BECKY Administration Morphine Sulfate 2 mg 04/23/21 05:32 Morphine 2 Mg/1 Ml Inj IV Q5MIN PRN Chest Pain unrelieved by NTG Nitroglycerin 0.4 mg 04/23/21 05:32 Nitroglycerin 0.4 Mg Tab Subl SL Q5M PRN Chest Pain Pantoprazole Sodium 40 mg 04/23/21 10:00 04/23/21 11:52 Pantoprazole 40 Mg Tab PO 40 mg QDAY BECKY Administration Pravastatin Sodium 40 mg 04/23/21 22:00 04/23/21 22:46 Pravastatin 40 Mg Tab PO 40 mg QHS BECKY Administration Sodium Chloride 10 ml 04/23/21 05:32 Sodium Chloride 0.9% 10 Ml Flush Syringe IV PRN PRN LINE FLUSH Tramadol HCl 50 mg 04/23/21 05:32 Tramadol 50 Mg Tab PO Q6H PRN Pain, Moderate (4-6) Nutrition/Malnutrition Assess - Dietary Evaluation Nutrition/Malnutrition Findings: Nutrition Notes Start: 04/23/21 13:57 Freq: Status: Active Protocol: Document 04/23/21 13:57 BIA (Rec: 04/23/21 14:49 BIA [id number]) Nutrition Notes Need for Assessment generated from: MD Order Initial or Follow up Assessment Current Diagnosis Diabetes,Hypertension,Heart Failure Current Diet Cardiac Diet (since B 04/23). Labs/Tests 04/23: Glu 194.. Pertinent Medications 04/23: Reviewed. Height 5 ft 7 in Weight 150 kg [place] Body Weight (kg) 61.36 BMI 51.7 Weight Status Morbidly Obese Subjective/Other Information MD recommended low sodium diet and fluid restriction, and nutrition education for T2DM & HTN. Percent of energy/protein needs met: Cardiac Diet provides for all energy/protein needs (2230 Kcal/ 85 g) during LOS. Burn Absent Trauma Absent GI Symptoms None Food Allergy No Skin Integrity/Comment Integumentary; clear, warm, dry. Minimum of two criteria No physical signs of malnutrition #1 Nutrition Diagnosis Food and nutrition-related knowledge deficit Etiology Pt apparently neglects cocomitant conditions for long time As Evidenced by Signs and Symptoms Pt presents to ER with CHF and uncontroled HTN, with Hx of T2DM Is patient on ventilator? No Is Patient Ambulatory and/or Out of Bed Yes REE-([place]-St. Jeor-ambulatory/OOB) [ 2746.419 NUTR.MSJOOB] Kcal/Kg value to use for calculation 15 Approximate Energy Requirements Using 2250 kcal/Kg Calculation Used for Recommendations Kcal/kg Additional Notes Protein: 1.0-1.2 g/Kg/day; 61- 73 g/day; 244-292 Kcal/day ( from IBW). Fluids: 1.0 ml/Kcal/day, or as per MD. (look for restrictions) Nutrition Intervention Change Diet Order: Continue prescribed Cardiac Diet. Teaching Recipient Patient Education Handouts Provided AND: Carbohydrate counting for peple with diabetes, Heart- healthy consistent carbohydrate nutrition therapy . NOTE: Pt still on hold for room to be assigned, F/U 04/25. RD phone number provided Yes Goal #1 Provide Pt with educational tools for decision making towards behavioral changes to adhere a healthy lifestyle Goal #2 Cardiac Diet will provide energy/protein needs (2230 Kcal/85 g) during LOS. Goal #3 Acheve and maintain acceptable chemistry lab values during LOS. Follow-Up By: 04/25/21 Additional Comments Continue monitoring acceptance of food, PO 5 intake of meals , and BM.
[2021-04-24] MEDS: MELOXICAM 7.5 MG TAB PO SCH ×2 (10:05→22:15)
[2021-04-24] MEDS: atenoloL 50 MG TAB PO SCH (10:05)
[2021-04-24] MEDS: CITALOPRAM 20 MG TAB PO SCH (10:05)
[2021-04-24] MEDS: amLODIPine 5 MG TAB PO SCH (10:06)
[2021-04-24] MEDS: ASPIRIN 81 MG TAB CHEW PO SCH (10:06)
[2021-04-24] MEDS: LISINOPRIL 40 MG TAB PO SCH (10:06)
[2021-04-24] MEDS: PANTOPRAZOLE 40 MG TAB PO SCH (10:06)
[2021-04-24] MEDS: CHLORTHALIDONE 25 MG TAB PO SCH (10:48)
--- NOTE | 2021-04-24 11:46 | Progress Note ---
Assessment and Plan Systolic heart failure chest CTA: no PE Hx of Nonischemic CMP LVEF 25-30% by echo at [facility] in 2016 & 2019: normal coronaries, EF 35% Hypertension, uncontrolled Prior CVA with left sided residual Presence of AICD (Biotronik) Recommendations: Low sodium diet and fluid restriction. Continue guideline directed medical therapy for nonischemic cardiomyopathy and systolic heart failure. Subjective Date of service: 04/24/21 Interval history: Patient reports her breathing has improved. Objective Vital Signs Temp Pulse Pulse Resp Resp BP Pulse Ox 04/24/21 04:47 97.5 F L 69 18 135/82 98 04/24/21 01:01 94 H 29 H 95/37 100 04/24/21 00:51 100 H 24 95/37 100 04/24/21 00:41 102 H 22 119/46 99 04/24/21 00:31 102 H 119/46 100 04/24/21 00:21 95 H 33 H 119/46 100 04/24/21 00:11 96 H 33 H 136/82 99 04/24/21 00:01 99 H 34 H 100 04/23/21 23:51 96 H 32 H 100 04/23/21 23:41 97 H 33 H 100 04/23/21 23:30 102 H 33 H 136/82 100 04/23/21 23:20 105 H 31 H 119/46 99 04/23/21 23:15 103 H 13 04/23/21 22:56 97.8 F 58 L 18 131/83 99 04/23/21 22:00 99 04/23/21 21:10 70 14 127/80 100 04/23/21 21:06 70 24 127/80 100 04/23/21 21:01 71 14 127/80 100 04/23/21 20:51 69 19 127/80 100 04/23/21 20:42 70 20 04/23/21 20:41 69 20 119/60 95 04/23/21 20:31 68 18 114/63 99 04/23/21 20:15 68 18 126/79 90 04/23/21 20:01 72 19 113/65 86 04/23/21 19:45 64 18 99 04/23/21 19:31 72 19 166/86 97 04/23/21 19:15 99 04/23/21 19:00 166/86 100 04/23/21 18:45 166/86 100 04/23/21 18:34 166/86 94 04/23/21 18:15 76 20 166/86 100 04/23/21 18:01 78 12 143/71 100 04/23/21 17:45 74 15 115/70 100 04/23/21 17:31 69 18 153/85 100 04/23/21 17:15 77 86 04/23/21 17:00 100 04/23/21 16:45 99 04/23/21 16:31 99 04/23/21 16:15 76 L 04/23/21 16:01 61 17 100 04/23/21 15:45 62 19 100 04/23/21 15:31 66 17 98 04/23/21 15:15 65 17 99 04/23/21 15:01 69 19 04/23/21 14:45 70 18 145/80 04/23/21 14:31 73 17 145/80 04/23/21 14:15 71 17 145/80 04/23/21 14:01 78 16 145/80 04/23/21 13:45 74 21 174/131 04/23/21 13:31 79 15 144/101 98 04/23/21 13:15 87 20 130/80 95 04/23/21 13:01 90 18 123/88 95 04/23/21 12:45 74 16 127/73 99 04/23/21 12:31 73 16 141/88 99 04/23/21 12:15 74 16 141/88 100 04/23/21 12:01 74 18 139/88 97 - Physical Examination General: No Apparent Distress HEENT: Positive: PERRL Neck: Positive: trachea midline Cardiac: Positive: Reg Rate and Rhythm Lungs: Positive: Decreased Breath Sounds Neuro: Positive: Weakness (left sided residual) Extremities: Absent: edema
--- NOTE | 2021-04-24 11:46 | Electrocardiograph Report ---
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
--- NOTE | 2021-04-24 11:49 | Electrocardiograph Report ---
[facility] Test Date: 2021-04-24 Test Time: 07:48:45 Pat Name: DULCE HOPKINS Department: Room: 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
[2021-04-24] MEDS: PRAVASTATIN 40 MG TAB PO SCH (22:16)
[2021-04-25] MEDS: INSULIN LISPRO 100 UNIT/ML SUB-Q SCH ×3 (00:06→11:30)
[2021-04-25 05:36] VITALS: BP 95/55
[2021-04-25] MEDS: HEPARIN 5,000 UNIT/1 ML VIAL SUB-Q SCH ×2 (06:16→14:30)
[2021-04-25] MEDS: FUROSEMIDE 40 MG/4 ML INJ IV SCH (06:32)
[2021-04-25] MEDS: LISINOPRIL 40 MG TAB PO SCH (10:00)
[2021-04-25] MEDS: atenoloL 50 MG TAB PO SCH (10:00)
[2021-04-25] MEDS: CHLORTHALIDONE 25 MG TAB PO SCH (10:00)
[2021-04-25] MEDS: MELOXICAM 7.5 MG TAB PO SCH (10:50)
[2021-04-25] MEDS: ASPIRIN 81 MG TAB CHEW PO SCH (10:50)
[2021-04-25] MEDS: PANTOPRAZOLE 40 MG TAB PO SCH (10:51)
[2021-04-25] MEDS: CITALOPRAM 20 MG TAB PO SCH (10:51)
--- NOTE | 2021-04-25 11:25 | Progress Note ---
Assessment and Plan - Patient Problems (1) Acute on chronic systolic heart failure Current Visit: Yes Status: Acute Plan to address problem: Patient has responded to inpatient therapy with intravenous diuretics and salt restricted diet, heart failure symptoms have resolved. Stable for discharge on guideline directed medical therapy. The likely etiology of her fluid overload is her predilection for high sodium fast foods, which she has promised to reduce and eliminate the high salt diet. Due to low normal blood pressure, I would be prudent to discontinue atenolol, continue Zestril and atenolol on discharge for her cardiomyopathy. The patient's regular vending machine servicer is in [place] and she should be directed to follow-up in 5 to 7 days as outpatient. Subjective Date of service: 04/25/21 Interval history: Patient is comfortable, looks and feels well, no new cardiac complaints. Heart failure symptoms have resolved. Objective Vital Signs Temp Pulse Resp Resp BP BP Pulse Ox 04/25/21 10:50 20 04/25/21 08:02 20 92 04/25/21 05:35 97.7 F 58 L 18 95/55 91 04/24/21 23:15 17 04/24/21 22:15 17 04/24/21 22:10 98.3 F 56 L 18 109/72 90 04/24/21 22:00 17 17 97 04/24/21 17:13 98.3 F 56 L 18 99/53 97 04/24/21 12:31 97.7 F 81 20 109/58 92 04/24/21 12:25 98.8 F 50 L 16 112/55 3 L 04/24/21 12:24 98.0 F 49 L 18 112/55 99 - Physical Examination General: No Apparent Distress HEENT: Positive: PERRL Neck: Positive: trachea midline Cardiac: Positive: Reg Rate and Rhythm Lungs: Positive: Decreased Breath Sounds Neuro: Positive: Grossly Intact Abdomen: Positive: Soft Skin: Positive: Clear Extremities: Absent: edema
--- NOTE | 2021-04-25 13:24 | Discharge Summary ---
Providers - Providers Date of Admission: 04/23/21 11:35 Date of discharge: 04/25/21 Attending physician: MAX JAMIL 04/23/21 Consult to Cardiac Rehabilitation [CONS] Routine Reason For Exam: Phase I 04/23/21 05:32 Consult to Physician [CONS] Routine Comment: Consulting Provider: HARRIS AG Physician Instructions: Reason For Exam: chf 04/23/21 05:33 Consult to Dietitian/Nutrition [CONS] Routine Physician Instructions: Reason For Exam: Reason for Consult: Diet education Primary care physician: FLAKER TENDER Hospitalization Reason for admission: Acute exacerbation of chronic systolic CHF/chest pain Condition: Stable Pertinent studies: CT chest with contrast; No CT evidence of PE increased interstitial prominence with patchy groundglass densities and perihilar fullness suggestive of early interstitial edema Chest x-ray; mild interstitial edema tiny pleural effusions Echocardiogram; LV EF 20 to 25%, Mild to moderate left ventricular hypertrophy Hospital course: 60-year-old female patient with significant past medical history of nonischemic cardiomyopathy , negative cardiac cath 2015 and again 2018 with normal coronaries with reduced ejection fraction of 35%. In 2019 patient showed persistent cardiomyopathy with lower ejection fraction at 25 to 30% status post [employer] defibrillator placement for primary prevention was admitted through emergency room with worsening shortness of breath and chest pain. patient follows with php wordpress developer at [facility] with she routinely gets device checking Patient was admitted with hypertensive urgency and worsening shortness of breath with acute on chronic congestive heart failure Evaluated by cardiology managed appropriately with antifailure medications, patient's blood pressures significantly improved sometimes at the lower range patient symptoms gradually improved indications optimized Today patient is comfortable no new complaints shortness of breath significantly decreased however blood pressures are in 90s to 100 systolic , patient's amlodipine is discontinued. cardiology cleared for discharge and recommend follow-up with primary php wordpress developer at [facility] per schedule Patient is hemodynamically and clinically stable at discharge Discharge diagnosis --acute on chronic systolic congestive heart failure[EF 20 to 25%] Continue antifailure medications, diuretics, beta-blockers, SELIN inhibitors Nitrates, input output monitoring, low-sodium diet, fluid restriction -- Acute coronary syndrome Continue aspirin , beta-blockers, SELIN inhibitors, nitrates, statin Echo; EF 20 to 25%, dilated cardiomyopathy -- Hypertensive urgency/present on admission Blood pressures well controlled, continue current antihypertensives As needed hydralazine --DMII (diabetes mellitus, type 2) Accu-Chek sliding scale coverage ADA diet Long-acting insulin as needed, check A1c -- History of CVA with residual deficit Continue aspirin and statin PT OT evaluation if needed, supportive care --AICD in place --GERD; Current Visit: No Status: Chronic Protonix 40 mg p.o --Ongoing tobacco use Current Visit: No Status: Chronic Smoking cessation, nicotine patch as needed Patient stable at discharge Disposition: 01 HOME / SELF CARE / HOMELESS Final Discharge Diagnosis (Prints w/discharge instructions): Acute on chronic systolic congestive heart failure. Acute coronary syndrome. Hypertensive urgency/resolved. Type 2 diabetes mellitus. History of CVA with residual deficit. GERD. Ongoing tobacco use; Time spent for discharge: 35 min Core Measure Documentation - Palliative Care Palliative Care/ Comfort Measures: Not Applicable - Core Measures Any of the following diagnoses?: heart failure - Heart Failure Discharge Requirements SELIN/ARB for LVSD if EF <40%: Yes Beta gricelda at discharge: Yes Exam - Constitutional Vitals: Temp Pulse Resp BP Pulse Ox 97.7 F 58 L 20 95/55 92 04/25/21 05:35 04/25/21 05:35 04/25/21 10:50 04/25/21 05:35 04/25/21 08:02 General appearance: Present: no acute distress, well-nourished, obese - EENT Eyes: Present: PERRL, EOM intact ENT: hearing intact, clear oral mucosa - Neck Neck: Present: supple, normal ROM - Respiratory Respiratory effort: normal Respiratory: bilateral: diminished, rales, negative: rhonchi, wheezing - Cardiovascular Rhythm: regular Heart Sounds: Present: S1 & S2 - Extremities Extremities: no ischemia, No edema - Abdominal General gastrointestinal: Present: soft, non-tender, non-distended, normal bowel sounds - Integumentary Integumentary: Present: clear, warm - Musculoskeletal Musculoskeletal: strength equal bilaterally, generalized weakness - Psychiatric Psychiatric: appropriate mood/affect, cooperative - Neurologic Neurologic: CNII-XII intact, moves all extremities Plan Activity: advance as tolerated Diet: low salt, other (Cardiac diet) Special Instructions: smoking cessation Additional Instructions: Advised to see your private php wordpress developer at [facility] in 1 to 2 weeks. If you have worsening symptoms contact MD or go to the nearest emergency room as needed. Advised to comply with medications, diet, low salt, fluid restriction and follow-up visits. Also advised smoking cessation nicotine patch as needed. Hold the blood pressure medications, if your blood pressure is less than 120 systolic. Follow up with: PRIMARY CARE, [Primary Care Provider] - 3-5 Days HARRIS AG MD [Staff Physician] - 14 Days Prescriptions: Nicotine [Habitrol] 14 mg TD DAILY #30 patch
== END 2021-04-25 14:37 | disposition home or self-care (01) | DRG 291 ==
LOC: ED 01:34 → 3A 07:20 → OBSVTOIN 11:35 → 3A 20:10
PROVIDERS: ADMIT Hospitalist; ATTEND Internal Medicine
DX: I11.0 Hypertensive heart disease with heart failure (principal); I50.23 Acute on chronic systolic (congestive) heart failure; I24.9 Acute ischemic heart disease, unspecified; Z68.43 Body mass index [BMI] 50.0-59.9, adult; I16.0 Hypertensive urgency; E66.01 Morbid (severe) obesity due to excess calories; I69.20 Unspecified sequelae of other nontraumatic intracranial hemorrhage; F17.200 Nicotine dependence, unspecified, uncomplicated; Z79.899 Other long term (current) drug therapy; E11.9 Type 2 diabetes mellitus without complications; E05.90 Thyrotoxicosis, unspecified without thyrotoxic crisis or storm; I42.8 Other cardiomyopathies; Z95.810 Presence of automatic (implantable) cardiac defibrillator; K21.9 Gastro-esophageal reflux disease without esophagitis
CPT/HCPCS: 36415; 71045; 71275; 80048; 82962; 83880; 84484; 85025; 85379; 93005; 93306; 94640; G0378; A9270-GY; J1644; J1815; J1940; Q9967